=== PATIENT | male | born 1955 | race Caucasian/White ===

== ENCOUNTER 2017-08-10 18:09 | Emergency (ER) | payer OTHER ==
[~2017-08-10] VITALS: Ht 165.1 cm; Wt 70.4 kg
[2017-08-10 18:14] VITALS: Ht 165.1 cm; Wt 70.4 kg
--- NOTE | 2017-08-10 19:45 | ERD ---
ER Documentation Chief Complaint Chief Complaint cold symptoms x 4 days HPI 61-year-old male who presents emergency department for cough and congestion for 4 days, chest pressure. Denies headache, dizziness, blurry vision, neck pain, throat pain, difficulty swallowing, shoulder pain, abdominal pain, nausea, vomiting, difficulty breathing when lying flat, constipation, diarrhea, recent long travel, recent travel, recent antibiotic use in the last 3 months, recent exposure to any illness, fever, chills. Denies past medical history. No surgical history. Not taking any medications at home. ROS All systems reviewed and are negative except as per history of present illness. Medications Home Meds Active Scripts Hydrocodone/Acetaminophen (Neversink 5-325 Tablet) 1 Each Tablet, 1 TAB PO Q6H Y for PAIN, #7 TAB Prov:SUMAYA RAMIREZ 08/10/17 Benzonatate* (Tessalon Perle*) 100 Mg Capsule, 100 MG PO Q8H Y for COUGH, #20 CAP Prov:SUMAYA RAMIREZ 08/10/17 Albuterol Sulfate* (Proair HFA*) 8.5 Gm Hfa.aer.ad, 2 PUFF INH Q4, #1 INHALER Prov:SUMAYA RAMIREZ 08/10/17 Prednisone* (Prednisone*) 20 Mg Tab, 40 MG PO DAILY for 5 Days, TAB Prov:SUMAYA RAIMREZ 08/10/17 Azithromycin* (Zithromax*) 250 Mg Tablet, 250 MG PO .ZPACK DIRECTED, #6 TAB TAKE 500 MG (2 TABS) THE FIRST DAY THEN 250 MG (1 TAB) DAYS 2-5 Prov:SUMAYA RAMIREZ 08/10/17 Allergies Allergies: Coded Allergies: No Known Allergy (Unverified , 08/10/17) Physical Exam Vitals Vital Signs Date Time Temp Pulse Resp B/P Pulse Ox O2 Delivery O2 Flow Rate FiO2 08/10/17 21:14 100.0 105 20 155/78 97 Room Air 08/10/17 20:15 100 18 95 21 08/10/17 18:14 99.6 94 18 168/88 95 Physical Exam Const: Well-appearing. Not in acute respiratory distress. Head: Atraumatic Eyes: Normal Conjunctiva ENT: Normal External Ears, Nose and Mouth. Neck: Full range of motion..~ No meningismus. Resp: There is mild wheezing bilaterally. Cardio: Regular rate and rhythm, no murmurs Abd: Soft, non tender, non distended. Normal bowel sounds Skin: No petechiae or rashes Back: No midline or flank tenderness Ext: No cyanosis, or edema Neur: Awake and alert Psych: Normal Mood and Affect Results 24 hrs Current Medications Medications (Trade) Dose Ordered Sig/Km Route PRN Reason Start Time Stop Time Status Last Admin Dose Admin Levalbuterol (Xopenex Neb) 0.63 mg ONCE ONCE HHN 08/10/17 20:00 08/10/17 20:01 DC 08/10/17 20:15 Procedures/MDM Chest x-ray: No acute cardiopulmonary disease. Age-indeterminate compression fracture in the lower thoracic spine. EKG: Normal sinus rhythm with a ventricular rate of 98 bpm. No STEMI. Read by supervising physician, Dr. Rickey Vasquez. Treatment: Xopenex breathing treatment. Reevaluation: Respirations even and unlabored. Lung sounds are clear to auscultation. Denies headache, shoulder pain, chest pain. No episode of emesis here in the emergency department. This case was discussed with supervising physician, Dr. Rickey Vasquez who agreed in my medical decision making to discharge patient and have him follow-up with an orthopedic doctor in the next 3-4 days. Differential: I have low suspicion for acute coronary syndrome, acute myocardial infarction, cardiac process, sepsis, pneumonia due to EKG result, chest x-ray result, patient responded to present treatment. Final diagnosis: Bronchitis. Prescription: Azithromycin. Pro-air. Prednisone. I also explained to the patient that he needs to see a orthopedic doctor due to his chronic thoracic spine fracture. Follow-up with PCP in the next 3-4 days. Come back here in the emergency department for any new symptoms or any worsening symptoms. All questions and concerns are answered. Patient verbalized understanding and agreed with the plan of care. Hemodynamically stable on discharge. Departure Diagnosis: Primary Impression: Acute bronchitis Condition: Stable Additional Instructions: Follow-up with PCP in the next 3-4 days. Come back here in the emergency department for any new symptoms or any worsening symptoms. All questions and concerns are answered. Patient verbalized understanding and agreed with the plan of care. SUMAYA RAMIREZ Aug 10, 2017 19:45
[2017-08-10] MEDS ORDERED: LEVALBUTEROL (NEB) 0.63 MG/3 ML AMP HHN ONE (20:00)
--- NOTE | 2017-08-10 20:50 | RADRPT ---
PROCEDURE: XR Chest. CLINICAL INDICATION: cough/chest pain TECHNIQUE: PA and Lateral views of the chest were obtained. COMPARISON: None. FINDINGS: The cardiomediastinal silhouette is within normal limits. The lungs are clear. No signs of pleural f luid or pneumothorax are seen. Age indeterminate compression fractures are noted within the lower th oracic spine. IMPRESSION: 1. No acute cardiopulmonary disease. 2. Age indeterminate compression fractures in the lower thoracic spine. RPTAT:AAJJ Physician Ronan Date Time Electronically viewed and signed by Renzo Burgos Physician on 08/10/2017 20:49 QL/
[2017-08-10] MEDS ORDERED: AZIT250T94 PO (21:02)
[2017-08-10] MEDS ORDERED: BENZ100C70 PO (21:02)
[2017-08-10] MEDS ORDERED: ALBU8.5H3 INH (21:02)
[2017-08-10] MEDS ORDERED: PRED20TA PO (21:02)
[2017-08-10] MEDS ORDERED: HYDR-906 PO (21:04)
[2017-08-10 21:14] VITALS: BP 155/78; PULSE 105; RESP 20; TEMP 100
== END 2017-08-10 21:16 | disposition home or self-care (01) ==
LOC: FTE 18:09
DX: J20.9 Acute bronchitis, unspecified (principal); R07.9 Chest pain, unspecified
CPT/HCPCS: 71020; 93005; 94664

== ENCOUNTER 2018-02-08 18:48 | Emergency (ER) | END 2018-02-09 01:05 | disposition home or self-care (01) ==